=== PATIENT | female | born 1990 | race African-American/Black ===

== ENCOUNTER 2020-08-26 09:06 | Inpatient (IN) ==
[2020-08-26] MEDS: LACTATED RINGERS 1,000 ML IV SCH (09:10)
[2020-08-26] MEDS ORDERED: BUTORPHANOL 2 MG/ML VIAL IV PRN (09:14)
[2020-08-26] MEDS ORDERED: ONDANSETRON 4 MG/2 ML VIAL IV PRN ×2 (09:14→10:01)
[2020-08-26] MEDS ORDERED: MEPERIDINE 50 MG/1 ML VIAL IV PRN (09:14)
[2020-08-26] MEDS ORDERED: miSOPROStoL 200 MCG TABLET ONE (09:25)
[2020-08-26] MEDS ORDERED: METHYLERGONOVINE 0.2 MG/1 ML AMP ONE (09:25)
[2020-08-26] MEDS ORDERED: CARBOPROST TROMETHAMINE 250 MCG/ML AMP IM ONE (09:26)
[2020-08-26] MEDS ORDERED: OXYTOCIN/LR 20 UNIT/1,000 ML BAG IV SCH (09:30)
[2020-08-26] MEDS ORDERED: LIDOCAINE 1% 50 ML VIAL ONE (09:44)
[2020-08-26 10:00] LABS: Basophils % 0.2 % (0.0-0.8); Eosinophils # 0.1 10*3/uL (0.0-0.87); Eosinophils % 0.5 % (0.00-10.9); Hematocrit 34.2 VOL% (35.7-47.0); Immature Granulocytes % 0.7 %; Immature Granulocytes Absolute 0.07 #; Lymphocytes # 2.2 10*3/uL (1.4-4.0); Lymphocytes % 20.6 % (21.3-54.2); Mean Corpuscular HGB Conc 28.4 GM/DL (32-36); Mean Corpuscular Volume 72.9 FL (87-102); Mean Platelet Volume 10.7 FL (9.6-12.0); Monocytes % 8.2 % (1.7-12.7); Neutrophils % 69.8 % (38.7-73.9); Platelet Count 260 T/CUMM (130-400); Red Blood Count 4.69 MC/CUMM (3.8-5.5); Red Cell Distribution Width 26.5 % (9.3-17.3); White Blood Count 10.5 T/CUMM (4-12)
[2020-08-26 10:01] LABS: Hemoglobin 9.7 GM/DL (12.0-16.0)
[2020-08-26] MEDS ORDERED: OXYTOCIN/LR 20 UNIT/1,000 ML BAG IV ONE (10:01)
[2020-08-26] MEDS ORDERED: BENZOCAINE 20%/MENTHOL 0.5% SPRAY 56 GM CAN TOP PRN (10:01)
[2020-08-26] MEDS ORDERED: oxyCODONE/ACETAMINOPHEN 5-325 MG TABLET PO PRN ×2 (10:01)
[2020-08-26] MEDS ORDERED: WITCH HAZEL PADS 100/JAR TOP PRN (10:01)
[2020-08-26] MEDS ORDERED: ACETAMINOPHEN 325 MG TABLET PO PRN (10:01)
[2020-08-26] MEDS ORDERED: HYDROCORTISONE 2.5% RECTAL CREAM 30 GM TUBE TOP PRN (10:01)
[2020-08-26] MEDS ORDERED: DIPH/TET/ACEL PERT BOOSTER VACCINE 0.5 ML VIAL IM ONE (10:01)
[2020-08-26] MEDS ORDERED: MEASLES/MUMPS/RUBELLA VACCINE 0.5 ML VIAL SUBCUT ONE (10:01)
[2020-08-26] MEDS ORDERED: LANOLIN 50% CREAM 0.3 OZ TUBE TOP PRN (10:01)
[2020-08-26] MEDS ORDERED: BISACODYL 10 MG SUPP RECTAL PRN (10:01)
[2020-08-26] MEDS ORDERED: RHO(D) IMMUNE GLOBULIN 300 MCG SYRINGE IM ONE (10:01)
[2020-08-26 10:04] LABS: Cord Arterial Blood HCO3 22.6 MMOL/L
[2020-08-26 10:09] LABS: Cord Venous Blood HCO3 21.3 MMOL/L; Cord Venous Blood PCO2 27.2 MMHG; Cord Venous Blood PO2 30.9 MMHG
[2020-08-26 10:12] LABS: Alanine Aminotransferase 9 U/L (13-56); Albumin 2.7 G/DL (3.4-5.0); Alkaline Phosphatase 185 U/L (45-117); Aspartate Amino Transferase 17 U/L (0-37); Bilirubin,Total < 0.39 MG/DL (0.2-1.0); Blood Urea Nitrogen 4 MG/DL (7-18); Calcium 9.3 MG/DL (8.5-10.1); Carbon Dioxide 17 MMOL/L (21-32); Estimated Glom Filtration Rate 192 ML/MIN; Glucose 86 MG/DL (74-106); Osmolality,Calculated 263.2 MOS/KG (273-304); Potassium 3.1 MMOL/L (3.5-5.1); Sodium 134 MMOL/L (136-145); Total Protein 7.7 G/DL (6.4-8.2)
[2020-08-26 10:53] LABS: HIV Antigen/Antibody Result Nonreactive (Nonreactive)
[2020-08-26] MEDS ORDERED: levETIRAcetam 500 MG TABLET PO SCH (11:00)
[2020-08-26] MEDS: POTASSIUM CHLORIDE 20 MEQ TABLET PO SCH (12:18)
[2020-08-26] MEDS: IBUPROFEN 800 MG TABLET PO PRN ×2 (13:44→21:22)
[2020-08-26] MEDS: levETIRAcetam 500 MG TABLET PO SCH (21:00)
[2020-08-26] MEDS: DOCUSATE SODIUM 100 MG CAPSULE PO SCH (21:21)
[2020-08-27 07:04] LABS: Basophils % 0.3 % (0.0-0.8); Eosinophils # 0.1 10*3/uL (0.0-0.87); Eosinophils % 0.7 % (0.00-10.9); Hematocrit 33.2 VOL% (35.7-47.0); Hemoglobin 9.3 GM/DL (12.0-16.0); Immature Granulocytes % 0.5 %; Immature Granulocytes Absolute 0.06 #; Lymphocytes # 2.6 10*3/uL (1.4-4.0); Lymphocytes % 22.9 % (21.3-54.2); Mean Corpuscular Volume 75.5 FL (87-102); Mean Platelet Volume 10.8 FL (9.6-12.0); Neutrophils % 68.6 % (38.7-73.9); Platelet Count 214 T/CUMM (130-400); Red Cell Distribution Width 26.9 % (9.3-17.3); White Blood Count 11.3 T/CUMM (4-12)
[2020-08-27] MEDS: LACTATED RINGERS 1,000 ML IV SCH (07:47)
[2020-08-27] MEDS: IBUPROFEN 800 MG TABLET PO PRN ×2 (08:27→14:24)
[2020-08-27] MEDS: levETIRAcetam 500 MG TABLET PO SCH (08:28)
[2020-08-27] MEDS: DOCUSATE SODIUM 100 MG CAPSULE PO SCH ×2 (08:28→20:58)
[2020-08-27] MEDS: POTASSIUM CHLORIDE 20 MEQ TABLET PO SCH (08:28)
[2020-08-27] MEDS ORDERED: OXYTOCIN/LR 20 UNIT/1,000 ML BAG IV ONE (08:33)
[2020-08-27] MEDS ORDERED: TRANEXAMIC ACID 1,000 MG/10 ML VIAL ONE (08:34)
[2020-08-27] MEDS ORDERED: miSOPROStoL 200 MCG TABLET ONE ×2 (08:34→08:36)
[2020-08-27] MEDS ORDERED: CARBOPROST TROMETHAMINE 250 MCG/ML AMP IM ONE (08:36)
[2020-08-27] MEDS ORDERED: METHYLERGONOVINE 0.2 MG/1 ML AMP ONE (08:36)
[2020-08-27] MEDS ORDERED: RHO(D) IMMUNE GLOBULIN 300 MCG SYRINGE IM ONE (21:00)
[2020-08-28 07:14] VITALS: BP 116/71
[2020-08-28] MEDS: DOCUSATE SODIUM 100 MG CAPSULE PO SCH (08:46)
[2020-08-28] MEDS: levETIRAcetam 500 MG TABLET PO SCH (08:46)
[2020-08-28] MEDS: POTASSIUM CHLORIDE 20 MEQ TABLET PO SCH (08:46)
[2020-08-28] MEDS ORDERED: IRON (CARBONYL)/VIT C/B12/FA TABLET PO SCH (09:00)
== END 2020-08-28 10:55 | disposition home or self-care (01) | DRG 560 ==
LOC: N.LDOUT 09:06 → N.LD 09:09 → N.OB 08-27 18:51
PROVIDERS: ADMIT Specialist; ATTEND Specialist